=== PATIENT | female | born 1980 | race African-American/Black ===

== ENCOUNTER → 2017-07-06 | Outpatient (CLI) | payer OTHER ==
[2016-03-04 14:54] VITALS: BP 113/81
--- NOTE | 2017-07-07 07:58 | RAD ---
HISTORY: Left knee pain, history ACL reconstruction Study: Left knee AP, lateral, oblique, sunrise Comparison: MRI left knee 07/24/2015 Findings: The patient is status post ACL reconstruction. There is no evidence for fracture, lytic, or blastic l esion. No joint erosion or joint effusion is identified. The joint space is well preserved. IMPRESSION: Status post ACL reconstruction No other significant abnormality identified Reported By:
== END ==
LOC: RAD 18:23
PROVIDERS: ATTEND Orthopaedic Surgery
DX: M25.562 Pain in left knee (principal); Z98.890 Other specified postprocedural states
CPT/HCPCS: 73564